=== PATIENT | female | born 1975 | race Caucasian/White ===

== ENCOUNTER 2021-03-30 21:23 | Emergency (ER) | payer OTHER ==
[~2021-03-30 21:23] MED LIST: BENTYL 20MG TAB20 MG PO; CELEBREX100 MG PO; KEFLEX CAP 500500 MG PO; LEVAQUIN750 MG PO; ZOFRAN ODT 4 MG4 MG PO; ZOFRAN ODT 4 MG4 MG SL
== END 2021-03-30 23:20 | disposition left against medical advice (07) ==
LOC: ER1 21:23
DX: Z53.21 Procedure and treatment not carried out due to patient leaving prior to being seen by health care provider (principal)

== ENCOUNTER 2021-04-01 06:22 | Inpatient (IN) | payer OTHER ==
[~2021-04-01] VITALS: Ht 170.2 cm; Wt 81.6 kg
[2021-04-01 06:58] LABS: HEMOGLOBIN 11.5 gm/dl (12.3-15.3); RED BLOOD COUNT 4.63 M/UL (4.00-5.10); WHITE BLOOD COUNT 13.2 K/UL (4.5-11.0)
[2021-04-01 07:23] LABS: BUN/CREATININE RATIO 10 (0-10)
[2021-04-02 07:25] LABS: HEMOGLOBIN 9.8 gm/dl (12.3-15.3); WHITE BLOOD COUNT 10.7 K/UL (4.5-11.0)
[2021-04-02 07:27] LABS: RED BLOOD COUNT 3.92 M/UL (4.00-5.10)
[2021-04-02 07:53] LABS: BUN/CREATININE RATIO 11 (0-10)
[2021-04-03 08:59] LABS: BUN/CREATININE RATIO 10 (0-10)
[2021-04-04 08:15] LABS: BUN/CREATININE RATIO 12 (0-10); HEMOGLOBIN 10.1 gm/dl (12.3-15.3); RED BLOOD COUNT 4.11 M/UL (4.00-5.10); WHITE BLOOD COUNT 8.7 K/UL (4.5-11.0)
--- NOTE | 2021-04-04 21:30 | NUR ---
PT STATED AT 2115 THAT SHE HAS AN URGENT CUSTODY MATTER TO RESOLVE TONIGHT. DR. SALGADO MADE AWARE, MD IS NOT GOING TO DISCHARGE PATIENT. PATIENT AWARE AND ADVISED OF THE OPTION TO LEAVE AGAINST MEDICAL ADVICE. PT EDUCATED ABOUT IN THE EVENT OF INJURY OR THE HOSPITAL IS NOT LIABLE FOR ANYTHING THAT HAPPENS AFTER LEAVING AMA. PT ALSO MADE AWARE SHE WILL NOT BE DISCHARGED WITH ANY MEDICATIONS OR EDUCATION. PT STATES UNDERSTANDING AND STILL WISHES TO LEAVE AMA. LENS CLEANER AND MD MADE AWARE OF PT LEAVING.
== END 2021-04-04 21:43 | disposition left against medical advice (07) | DRG 871 ==
LOC: ER1 06:22 → M/S 09:41 → CDU 09:41 → M/S 09:41
PROVIDERS: Internal Medicine; Physician Assistant; Physician Assistant Medical; ADMIT Internal Medicine
PROC: 8E0ZXY6 Isolation (ICD-10-PCS; principal; 2021-04-03)
PROC: XW033E5 Introduction of Remdesivir Anti-infective into Peripheral Vein, Percutaneous Approach, New Technology Group 5 (ICD-10-PCS; 2021-04-04)
PROC: 3E0333Z Introduction of Anti-inflammatory into Peripheral Vein, Percutaneous Approach (ICD-10-PCS; 2021-04-04)
DX: A41.89 Other specified sepsis (principal); U07.1 COVID-19; J12.82 Pneumonia due to coronavirus disease 2019; N10 Acute pyelonephritis; N39.0 Urinary tract infection, site not specified; E03.9 Hypothyroidism, unspecified; F17.210 Nicotine dependence, cigarettes, uncomplicated; B96.20 Unspecified Escherichia coli [E. coli] as the cause of diseases classified elsewhere; F15.10 Other stimulant abuse, uncomplicated; Z90.89 Acquired absence of other organs; Z98.890 Other specified postprocedural states; Z83.3 Family history of diabetes mellitus; Z90.49 Acquired absence of other specified parts of digestive tract; Z79.899 Other long term (current) drug therapy
CPT/HCPCS: 36415; 71045; 80048; 80053; 81001; 83735; 84703; 85025; 85027; 87077; 87086; 87186; 96372; 96374; 96375; 96376; 99285; G0378; J0696; J1100; J1650; J2270; J2405; J7030; Q9967; U0002

== ENCOUNTER 2021-07-24 20:51 | Emergency (ER) | payer OTHER | END 2021-07-24 21:47 | disposition left against medical advice (07) | LOC: ER1 20:51 | DX: Z53.21 Procedure and treatment not carried out due to patient leaving prior to being seen by health care provider (principal) ==